=== PATIENT | male | born 1975 | race Two or more races ===

== ENCOUNTER 2017-09-10 14:43 | Day surgery (SDC) | payer OTHER ==
[2017-09-10] MEDS ORDERED: MIDAZOLAM 1 MG/ML 2 ML INJ (15:36)
[2017-09-10] MEDS ORDERED: FENTAnyl 50 MCG/ML VIAL ×2 (15:36)
== END 2017-09-10 17:03 | disposition home or self-care (01) ==
LOC: GIL 14:43
DX: R19.4 Change in bowel habit (principal); D12.5 Benign neoplasm of sigmoid colon; K64.8 Other hemorrhoids; Z80.0 Family history of malignant neoplasm of digestive organs; F17.200 Nicotine dependence, unspecified, uncomplicated; E66.9 Obesity, unspecified; Z68.41 Body mass index [BMI] 40.0-44.9, adult
CPT/HCPCS: 45380; 88305